=== PATIENT | male | born 1995 | race Caucasian/White ===

== ENCOUNTER 2025-03-03 11:55 | Emergency (ER) | payer OTHER ==
[2025-03-03] MEDS: Acetaminophen 500 MG Tab PO ONE (13:48)
[2025-03-03] MEDS: Ondansetron 4 MG Tab.DIS PO ONE (15:07)
[2025-03-03] MEDS: Lidocaine 4% Patch TOP STA (15:34)
[2025-03-03] MEDS: Ketorolac 30 MG/ML SDV IM ONE (15:35)
[2025-03-03] MEDS: Orphenadrine 60 MG/2 ML Inj IM ONE (15:35)
== END 2025-03-03 17:39 | disposition home or self-care (01) ==
LOC: MW.ED 11:55
DX: S06.0X0A Concussion without loss of consciousness, initial encounter (principal); Z75.8 Other problems related to medical facilities and other health care; Z79.899 Other long term (current) drug therapy; V40.5XXA Car driver injured in collision with pedestrian or animal in traffic accident, initial encounter; Y93.89 Activity, other specified
CPT/HCPCS: 70450; 96372; 99284; A9270; J1885; J2360; 99283